=== PATIENT | female | born 1940 ===

== ENCOUNTER → 2021-06-01 11:02 | Outpatient (BNVA) | payer OTHER, SELFPAY | PROVIDERS: PCP Family Medicine; Visit Provider Psychiatry & Neurology Neurology ==

== ENCOUNTER → 2021-08-01 10:58 | Outpatient (BNVA) | payer OTHER, SELFPAY | PROVIDERS: PCP Internal Medicine; Visit Provider Nurse Practitioner Family | DX: G24.3 Spasmodic torticollis (principal); R51.9 Headache, unspecified; M54.2 Cervicalgia ==